=== PATIENT | male | born 1970 | race Caucasian/White ===

== ENCOUNTER → 2016-07-30 | Outpatient (CLI) | payer BC ==
[2016-07-30 08:52] LABS: BASOPHILS # (AUTO) 0.03 10*3/UL; BASOPHILS % (AUTO) 0.6 % (0-1); EOSINOPHILS % (AUTO) 12.8 % (0-8); HEMATOCRIT 44.4 % (42.0-52.0); HEMOGLOBIN 15.3 g/dL (14.0-18.0); IMM GRAN % (AUTO) 0.2 % (0-5); IMM GRAN# (AUTO) 0.01 10*3/UL; LYMPHOCYTES % (AUTO) 39.9 % (10-50); MEAN CORPUSCULAR HEMOGLOBIN 31.6 PG (27-31); MEAN CORPUSCULAR HGB CONC 34.5 g/dL (33-37); MEAN PLATELET VOLUME 8.1 FL (7.4-12.2); MONOCYTES # (AUTO) 0.43 10*3/UL (0.3-0.8); MONOCYTES % (AUTO) 8.6 % (5-15); NEUTROPHILS % (AUTO) 37.9 % (50-80); RDW COEFFICIENT OF VARIATION 12.9 % (11.5-14.5); RED BLOOD COUNT 4.84 10^6/uL (4.70-6.10); WHITE BLOOD COUNT 5.01 10^3/uL (4.8-10.8)
[2016-07-30 08:58] LABS: PLATELET MORPHOLOGY COMMENT NORMAL MORPHOLOGY (NORM)
--- NOTE | 2016-07-30 21:33 | DI ---
MRI LEFT KNEE SCAN, 07/30/2016 8:40 AM: Clinical History: Left knee pain. Previous Exam: 02/17/2016. Technique: Axial, coronal, and sagittal PD and fat saturated PD; axial T1 weighted. There is no soft tissue edema. There is a small joint effusion with synovitis in the suprapatellar bu rsa and near Hoffa's fat pad. No abnormal bone signal pattern is present. The medial and lateral bryan ateral ligaments are normal. There is intermediate signal in the ACL indicating a chronic partial tea r. Similar changes are present in the superior half of the posterior cruciate ligament. There is blun ting of the medial meniscus in the body and this patient may have had a partial meniscectomy. There i s a prominent amount of cartilage in the lateral meniscus in this patient may have a partial discoid meniscus with a flap tear in the body near the inner margin. The quadriceps and patellar tendons and the tendon of the lateral head of the gastrocnemius muscle are normal. There is fluid in the deep inf rapatellar bursa and this has increased since the last exam. Intermediate signal intensity is present in the tendon of the medial head of the gastrocnemius muscle at the attachment to the femur, and als o in the popliteus tendon consistent with chronic partial tears. 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 The cartilage involving the lateral compartment is nor mal. Readin. Small joint effusion with synovitis in the suprapatellar bursa and now in the region of Hoffa's f at pad. Fluid has increased in the deep infrapatellar bursa indicating bursitis. Chronic partial tear s are noted in the ACL, PCL, and in the popliteus tendon and the tendon of the medial head of the gas trocnemius muscle. There may be a partial discoid meniscus involving the lateral meniscus with a flap tear toward the inner surface of the body. The patient presumably has had a partial meniscectomy in the body of the medial meniscus. 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 2. The MCL, LCL, quadriceps and patellar tendons and the articular surfaces of the lateral compartme nt are normal.
== END ==
LOC: MRI 08:30
PROVIDERS: ATTEND Orthopaedic Surgery
DX: M25.562 Pain in left knee (principal); M25.462 Effusion, left knee; S83.92XA Sprain of unspecified site of left knee, initial encounter; M23.8X2 Other internal derangements of left knee; M94.262 Chondromalacia, left knee; M71.562 Other bursitis, not elsewhere classified, left knee
CPT/HCPCS: 36415; 73721; 84550; 85025; 85652; 86038; 86140; 86431

== ENCOUNTER → 2016-08-07 | Outpatient (CLI) | payer BC ==
[2016-08-07 08:57] LABS: BASOPHILS # (AUTO) 0.04 10*3/UL; BASOPHILS % (AUTO) 0.7 % (0-1); EOSINOPHILS % (AUTO) 10.5 % (0-8); HEMATOCRIT 46.1 % (42.0-52.0); HEMOGLOBIN 15.9 g/dL (14.0-18.0); IMM GRAN % (AUTO) 0.3 % (0-5); IMM GRAN# (AUTO) 0.02 10*3/UL; LYMPHOCYTES % (AUTO) 32.1 % (10-50); MEAN CORPUSCULAR HEMOGLOBIN 31.5 PG (27-31); MEAN CORPUSCULAR HGB CONC 34.5 g/dL (33-37); MEAN PLATELET VOLUME 8.6 FL (7.4-12.2); MONOCYTES # (AUTO) 0.58 10*3/UL (0.3-0.8); MONOCYTES % (AUTO) 9.8 % (5-15); NEUTROPHILS # (AUTO) 2.75 10*3/UL; NEUTROPHILS % (AUTO) 46.6 % (50-80); RDW COEFFICIENT OF VARIATION 12.9 % (11.5-14.5); RED BLOOD COUNT 5.04 10^6/uL (4.70-6.10); WHITE BLOOD COUNT 5.91 10^3/uL (4.8-10.8)
[2016-08-07 08:59] LABS: PLATELET MORPHOLOGY COMMENT NORMAL MORPHOLOGY (NORM)
--- NOTE | 2016-08-07 09:12 | EKG ---
[address] [address] Measurements Intervals [place] Rate: 67 P: 56 WI: 155 QRS: -3 QRSD: 93 T: -16 QT: 420 QTc: 435 Interpretive Statements SINUS RHYTHM Compared to ECG 03/11/2016 13:42:41 Intraventricular conduction delay no longer present Electronically Signed On 08-07-16 12:16:11 MST by Vaughn Flores MD [email or web address]
[2016-08-07 09:14] LABS: ASPARTATE AMINO TRANSFERASE 21 IU/L (21-57); BILIRUBIN,TOTAL 0.5 mg/dL (0.3-1.2); BLOOD UREA NITROGEN 18 mg/dL (7-22); CHLORIDE 107 meq/L (98-112); CREATININE 0.9 mg/dL (0.70-1.50); EST GLOMERULAR FILTRATION > 60 (>60 ml/min/1.73m(2)); GLUCOSE 97 mg/dL (78-110); HDL CHOLESTEROL 52 mg/dL (40-150); POTASSIUM 4.2 meq/L (3.8-5.2); SODIUM 143 meq/L (135-145); TOTAL PROTEIN 7.5 g/dL (6.1-8.0); TRIGLYCERIDES 214 mg/dL (44-200)
== END ==
LOC: EKG 08:39
PROVIDERS: ATTEND Orthopaedic Surgery
DX: Z01.812 Encounter for preprocedural laboratory examination (principal); Z01.810 Encounter for preprocedural cardiovascular examination; M25.562 Pain in left knee; Z00.00 Encounter for general adult medical examination without abnormal findings; E03.9 Hypothyroidism, unspecified; E78.5 Hyperlipidemia, unspecified; K21.9 Gastro-esophageal reflux disease without esophagitis; Z12.5 Encounter for screening for malignant neoplasm of prostate; F17.210 Nicotine dependence, cigarettes, uncomplicated
CPT/HCPCS: 36415; 80053; 80061; 82306; 84443; 85025; 93005; 93010; G0103

== ENCOUNTER 2016-09-15 11:38 | Day surgery (SDC) | payer BC ==
[~2016-09-15 11:38] MED LIST: LIDOCAINE W/ SODIUM BICARB 0.5 ML SYR ONE; Lactated Ringers 1,000 ML PRIMARY IV ONE
[2016-09-15 12:05] VITALS: RESP 14
[2016-09-15] MEDS ORDERED: LIDOCAINE HCL 1%/EPI 1:100,000 - 20 ML VIAL ONE (13:52)
[2016-09-15] MEDS ORDERED: fentaNYL Inj 100 MCG/2 ML VIAL ONE (13:52)
[2016-09-15] MEDS ORDERED: MIDAZOLAM 5 MG/1 ML ONE (13:53)
[2016-09-15] MEDS ORDERED: BUPivacaine Inj 0.5% PF (5mg/ml) 10ml vial ONE (13:53)
--- NOTE | 2016-09-15 14:37 | GEN.OPNOTE ---
Operative Note Surgery Date: 09/15/16 Preoperative Diagnosis: perirectal abscess Postoperative Diagnosis: same Procedure: I&D of perirectal abscess Surgeon: Nabil Gtz MD Anesthesia Provider: Tyson Carey CRNA Anesthesia Type: Local, MAC Indications: I draining perirectal abscess Operative Summary: Patient is placed in dorsolithotomy position given IV sedation. Timeout performed per protocols. Localized abscess infiltrated local anesthetic 0.5 Marcaine with 1% lidocaine. I then may decrease incision into the abscess cavity. Irrigated out. Patient did have a communication to the draining portion abscess inside the rectum.
[2016-09-15 15:37] VITALS: TEMP 97.6
== END 2016-09-15 15:15 ==
LOC: SDSC 11:38
PROVIDERS: ATTEND Surgery
DX: K61.1 Rectal abscess (principal)
CPT/HCPCS: 46040; J2704; J3010; J2250; J3490; J7120

== ENCOUNTER → 2016-11-10 | Outpatient (CLI) | payer BC | LOC: LAB 11:59 | PROVIDERS: ATTEND Family Medicine | DX: E55.9 Vitamin D deficiency, unspecified (principal) | CPT/HCPCS: 36415; 82306 ==